=== PATIENT | male | born 1995 | race African-American/Black ===

== ENCOUNTER 2020-03-26 01:53 | Emergency (ER) | payer MEDICAID ==
[~2020-03-26] VITALS: Ht 185.4 cm; Wt 115.7 kg
[2020-03-26 01:57] VITALS: BP_SYST 162
[2020-03-26] MEDS ORDERED: AMOXICILLIN 500 MG CAPSULE PO ONE (02:15)
[2020-03-26] MEDS ORDERED: LIDOCAINE VISCOUS 2%, 15 ML UDC MM ONE (02:15)
[2020-03-26 02:25] VITALS: BP_SYST 142
== END 2020-03-26 02:25 | disposition home or self-care (01) ==
LOC: SED 01:53
DX: J02.8 Acute pharyngitis due to other specified organisms (principal); B96.89 Other specified bacterial agents as the cause of diseases classified elsewhere; R03.0 Elevated blood-pressure reading, without diagnosis of hypertension
CPT/HCPCS: 99283; J2001

== ENCOUNTER 2021-01-02 07:32 | Emergency (ER) | payer MEDICAID ==
[~2021-01-02] VITALS: Ht 185.4 cm; Wt 90.7 kg
[2021-01-02 07:59] VITALS: BP_SYST 179
--- NOTE | 2021-01-02 08:00 | NUR ---
Patient to ER bed TENT1 to gown for evaluation. Side rails up.
--- NOTE | 2021-01-02 08:03 | NUR ---
ER at bedside examining patient.
--- NOTE | 2021-01-02 08:10 | NUR ---
Pt presents to ED c/o bilateral leg pain/numbness x 1 week w/o injury. Pt has no deficits noted. Pt ambulates with steady gait.
--- NOTE | 2021-01-02 08:20 | NUR ---
Urine specimen collected .
[2021-01-02 08:43] LABS: BASOPHILS % (AUTO) 0.6 % (0.0-2.0); EOSINOPHILS % (AUTO) 0.6 % (0.0-4.0); HEMATOCRIT 45.6 % (36-54); HEMOGLOBIN 15.2 g/dL (14.0-18.0); MEAN CORPUSCULAR HEMOGLOBIN 30 pg (27-31); MEAN CORPUSCULAR HGB CONC 33 % (32-36); MEAN CORPUSCULAR VOLUME 89 fL (79.0-98.0); MONOCYTES # (AUTO) 0.8 K/uL (0.0-1.0); MONOCYTES % (AUTO) 11.1 % (1.7-9.3); NEUTROPHILS % (AUTO) 58.7 % (40.0-70.0); PLATELET COUNT (AUTO) 279 K/uL (130-430); RED BLOOD CELL COUNT(AUTO) 5.11 MIL/uL (4.2-6.2); RED CELL DISTRIBUTION WIDTH 16.6 % (9.0-15.0); WHITE BLOOD COUNT (AUTO) 6.8 K/uL (4.8-10.8)
[2021-01-02 08:56] LABS: ANION GAP 11 (5-15); CALCIUM 9.9 mg/dL (8.4-11.0); CHLORIDE 103 mmol/L (98-107); CREATININE 0.95 mg/dL (0.55-1.30); GLUCOSE 84 mg/dL (70-99); POTASSIUM 3.7 mmol/L (3.5-5.1); SODIUM SERUM 140 mmol/L (136-145); UREA NITROGEN, BLOOD 11 mg/dL (8-21)
[2021-01-02 08:57] LABS: GFR AFRICAN AMERICAN 126 mL/min (>90)
[2021-01-02 09:06] LABS: ALANINE AMINOTRANSFERASE 45 U/L (12-78); ALBUMIN 4.3 g/dL (3.4-4.8); ASPARTATE AMINOTRANSFERASE 27 U/L (10-37); TOTAL BILIRUBIN 0.9 mg/dL (0.0-1.0)
[2021-01-02 09:07] LABS: ALCOHOL, BLOOD < 3 mg/dL (<10)
[2021-01-02 09:31] LABS: BARBITURATE, URINE NEGATIVE (NEG <=200); BENZODIAZEPINE, URINE NEGATIVE (NEG <=150); CANNABINOID, URINE POSITIVE (NEG <=50); COCAINE, URINE POSITIVE (NEG <=150); METHAMPHETAMINES SCREEN,URINE NEGATIVE (NEG <=500); OPIATE, URINE NEGATIVE (NEG <=100); PHENCYCLIDINE SCREEN,URINE NEGATIVE (NEG <=25); UR TRICYCLIC ANTIDEPRESSANTS NEGATIVE (NEG <=300); URINE AMPHETAMINE NEGATIVE (NEG <=500); URINE METHADONE NEGATIVE (NEG <=200); URINE OXYCODONE SCREEN NEGATIVE (NEG <=100); URINE PROPOXYPHENE SCREEN NEGATIVE (NEG <=300)
[2021-01-02 09:48] VITALS: BP_SYST 179
--- NOTE | 2021-01-02 09:48 | NUR ---
Patient given written and verbal discharge instructions and verbalizes understanding. ER MD discussed with patient the results and treatment provided. Patient in stable condition. ID arm band removed. no Rx of given. Patient educated on pain management and to follow up with PMD. Pain Scale 0 Opportunity for questions provided and answered. Medication side effect fact sheet provided.
== END 2021-01-02 09:48 | disposition home or self-care (01) ==
LOC: SED 07:32
DX: M79.89 Other specified soft tissue disorders (principal); F19.10 Other psychoactive substance abuse, uncomplicated
CPT/HCPCS: 36415; 80053; 80307; 82607; 82746; 83735; 84100; 85025; 99283; G0482